=== PATIENT | female | born 1960 | race Hispanic/Latino ===

== ENCOUNTER 2017-02-20 07:50 | Day surgery (SDC) | payer MEDICARE, MEDICAID ==
[2017-02-13 08:05] VITALS: BMI 29.0
[2017-02-20] MEDS ORDERED: Propofol 10 mg/ml Inj (20 ML) ONE ×2 (09:01→09:52)
[2017-02-20] MEDS ORDERED: Midazolam 2 MG/2 ML VIAL ONE (09:01)
[2017-02-20] MEDS ORDERED: cefTRIAXone IV 1 gm in Dextros 50 ML IVPB ONE (09:11)
[2017-02-20] MEDS ORDERED: Lactated Ringer's 1,000 ML IV ONE (09:13)
[2017-02-20] MEDS ORDERED: Lidocaine 2% Jelly (Uro-Jet) ONE (09:39)
[2017-02-20] MEDS ORDERED: HYDROmorphone 0.5 mg/0.5 ml ISec IVP PRN (10:08)
[2017-02-20] MEDS ORDERED: Lactated Ringer's 1,000 ML IV SCH (10:15)
[2017-02-20 10:53] VITALS: BP 108/74; PULSE 80; RESP 18; TEMP 97.5; O2SAT 100
--- NOTE | 2017-02-20 17:23 | RAD ---
HISTORY: LT. NEPHROLITHIASIS COMPARISON: 02/15/2017. FINDINGS: BOWEL: Normal. No obstruction. No free air. BONES: Normal. OTHER FINDINGS: Stable position of double-J stent catheter on the left. IMPRESSION: No acute findings or interval changes.
--- NOTE | 2017-02-20 17:24 | RAD ---
PROCEDURE: Intraoperative Fluoroscopy. HISTORY: LT. NEPHROLITHIASIS FINDINGS: Fluoroscopic assistance was provided for double-J stent placement.. fluoroscopic time (continuous mode) utilized during the procedure: 9.3 seconds.
--- NOTE | 2017-02-21 07:33 | OP ---
PROCEDURE DATE: 02/20/2017 TIME OF DICTATION: Roughly 10:24 a.m. PREOPERATIVE DIAGNOSIS: Left nephro and ureterolithiasis with left ureteral stent. PROCEDURE: Cystoscopy with removal of left ureteral stent under fluoroscopic control. ANESTHESIA: Local anesthesia plus IV sedation. ANESTHESIA ADMINISTERED BY: Jacklyn nurse chin strap cutter DESCRIPTION OF PROCEDURE: The patient was placed on the cystostomy table in the dorsal lithotomy position, prepped and draped in the usual sterile fashion with Betadine solution. Under adequate IV sedation, approximately 5 mL of 2% Xylocaine jelly was injected intraurethrally followed by insertion of a 22-Martiniquais Storz cystoscope into the bladder. Using sterile water as irrigating solution throughout the procedure, the bladder was examined in all four quadrants and the only foreign body seen in the bladder was a multi-length ureteral stent jetting from the left ureteral orifice with slight encrustation. The right ureteral orifice was completely normal with clear efflux. The remainder of the bladder appeared to be relatively smooth with minimal trabeculation. There were no other foreign bodies or suspicious lesion seen in the bladder. No evidence of any bladder malignancy. Next, the left ureteral stent was grasped with a rigid grasper and under fluoroscopic control, was slowly brought down the left ureter from the left collecting system and was gradually removed. Because of the encrustation, the stent was sent to pathology for stone analysis. At the end of the procedure, the patient tolerated the procedure well without any blood loss and was brought to the recovery area in satisfactory condition. PLAN: Plan for this patient will be to send the patient home on Pyridium 200 mg t.i.d. for any dysuria for 5 days and also Ceftin 500 mg b.i.d. for 5 days. The patient currently is on chronic pain medication for control of her metastatic breast cancer pain. Plan is for this patient to see me in patient office followup in 2 weeks. Elton Curry MD cc: *------* [facility]
[2017-02-23 20:26] LABS: STONE SOURCE Left Ureter
== END 2017-02-20 10:45 | disposition home or self-care (01) ==
LOC: C.SDS 07:50
PROVIDERS: ATTEND Urology
DX: Z46.6 Encounter for fitting and adjustment of urinary device (principal); N20.2 Calculus of kidney with calculus of ureter; E11.9 Type 2 diabetes mellitus without complications; G89.3 Neoplasm related pain (acute) (chronic); C50.919 Malignant neoplasm of unspecified site of unspecified female breast
CPT/HCPCS: 52310; 74022; 82365; 82948; 88300; J0696; J7120